=== PATIENT | female | born 1985 | race Caucasian/White ===

== ENCOUNTER 2022-02-24 13:16 | Emergency (ER) | payer OTHER ==
[~2022-02-24 13:16] MED LIST: NORCO 5-325 TA1 EACH PO
[2022-02-24 14:32] LABS: HEMOGLOBIN 15.4 gm/dl (12.3-15.3); RED BLOOD COUNT 4.93 M/UL (4.00-5.10); WHITE BLOOD COUNT 9.5 K/UL (4.5-11.0)
[2022-02-24 15:05] LABS: BUN/CREATININE RATIO 16 (0-10)
[2022-02-24] MEDS ORDERED: REGLAN5 MG PO (15:45)
== END 2022-02-24 15:56 | disposition home or self-care (01) ==
LOC: ER1 13:16
PROVIDERS: Physician Assistant
DX: R11.0 Nausea (principal); F41.9 Anxiety disorder, unspecified; E11.9 Type 2 diabetes mellitus without complications
CPT/HCPCS: 80053; 81001; 83735; 84703; 85025; 96374; 99283; J2765